=== PATIENT | male | born 1955 | race Caucasian/White ===

== ENCOUNTER → 2019-11-12 | Outpatient (CLI) | payer OTHER ==
[2019-11-12 15:27] LABS: Anisocytosis Slight; HCT 32.2 % (39.0-53.0); HGB 9.6 gm/dL (13.0-17.5); Hypochromasia Marked; MCH 24.8 pg (25.0-35.0); MCHC 29.8 g/dL (31.0-37.0); MCV 83.2 fL (80.0-100.0); Mean Platelet Volume 8.2; Platelet Count 295 k/uL (150-450); Poikilocytosis Marked; RBC 3.87 m/uL (4.30-5.90); RDW 16.8 % (11.5-15.5); WBC 3.9 k/uL (3.8-10.6)
[2019-11-12 15:35] LABS: ALT 17 U/L (4-49); AST 33 U/L (17-59); African American GFR (CKD) >90 (>60 ml/min/1.73 sqM); Albumin 4.6 g/dL (3.5-5.0); Alkaline Phosphatase 85 U/L (38-126); Anion Gap 9 mmol/L; Blood Urea Nitrogen 17 mg/dL (9-20); Calcium 9.4 mg/dL (8.4-10.2); Carbon Dioxide 25 mmol/L (22-30); Chloride 104 mmol/L (98-107); Glucose 101 mg/dL (74-99); Non-African American GFR(CKD) >90 (>60 ml/min/1.73 sqM); Potassium 4.3 mmol/L (3.5-5.1); Sodium 138 mmol/L (137-145); Total Bilirubin 0.7 mg/dL (0.2-1.3); Total Protein 7.5 g/dL (6.3-8.2)
[2019-11-12 15:39] LABS: Partial Thromboplastin Time 22.1 sec (22.0-30.0); Prothrombin Time 10.1 sec (9.0-12.0)
[2019-11-12 16:04] LABS: Appearance,Urine Clear (Clear); Bilirubin,Urine Negative (Negative); Blood,Urine Negative (Negative); Color,Urine Yellow; Glucose,Urine (UA) Negative (Negative); Hyaline Casts,Urine 1 /lpf (0-2); Ketones,Urine Negative (Negative); Leukocyte Esterase,Urine Moderate (Negative); Mucus,Urine Few /hpf; Nitrite,Urine Negative (Negative); PH, Urine 6.5 (5.0-8.0); Protein,Urine 1+ (Negative); RBC,Urine 1 /hpf (0-5); Specific Gravity,Urine 1.015 (1.001-1.035); Squamous Epithelial Cell,Urine 1 /hpf (0-4); Urobilinogen,Urine <2.0 mg/dL (<2.0); WBC,Urine 13 /hpf (0-5)
== END | disposition home or self-care (01) ==
LOC: LABPAT 14:56
PROVIDERS: ATTEND Orthopaedic Surgery
DX: Z01.818 Encounter for other preprocedural examination (principal); Z01.812 Encounter for preprocedural laboratory examination
CPT/HCPCS: 36415; 80053; 81001; 85027; 85610; 85730; 87070

== ENCOUNTER → 2019-11-18 | Outpatient (CLI) | payer OTHER ==
[2019-11-18 10:01] LABS: Anisocytosis Slight; HCT 32.4 % (39.0-53.0); HGB 9.4 gm/dL (13.0-17.5); Hypochromasia Marked; MCH 23.9 pg (25.0-35.0); MCV 82.5 fL (80.0-100.0); Mean Platelet Volume 8.2; Platelet Count 302 k/uL (150-450); Poikilocytosis Marked; RBC 3.93 m/uL (4.30-5.90); WBC 4.6 k/uL (3.8-10.6)
[2019-11-18 10:10] LABS: Prothrombin Time 9.9 sec (9.0-12.0)
[2019-11-18 10:18] LABS: ALT 19 U/L (4-49); AST 30 U/L (17-59); African American GFR (CKD) >90 (>60 ml/min/1.73 sqM); Albumin 4.1 g/dL (3.5-5.0); Alkaline Phosphatase 86 U/L (38-126); Anion Gap 8 mmol/L; Blood Urea Nitrogen 18 mg/dL (9-20); Calcium 8.9 mg/dL (8.4-10.2); Carbon Dioxide 24 mmol/L (22-30); Chloride 105 mmol/L (98-107); Glucose 145 mg/dL (74-99); Non-African American GFR(CKD) 85 (>60 ml/min/1.73 sqM); Potassium 4.7 mmol/L (3.5-5.1); Sodium 137 mmol/L (137-145); Total Bilirubin 0.5 mg/dL (0.2-1.3); Total Protein 6.7 g/dL (6.3-8.2)
== END | disposition home or self-care (01) ==
LOC: LABPAT 12:00
PROVIDERS: ATTEND Orthopaedic Surgery
DX: Z01.818 Encounter for other preprocedural examination (principal)
CPT/HCPCS: 80053; 85027; 85610; 85730; 86850; 86900; 86901

== ENCOUNTER 2019-11-20 10:13 | Day surgery (SDC) | payer OTHER ==
[2019-11-18 10:01] LABS: Anisocytosis Slight; HCT 32.4 % (39.0-53.0); HGB 9.4 gm/dL (13.0-17.5); Hypochromasia Marked; MCH 23.9 pg (25.0-35.0); MCV 82.5 fL (80.0-100.0); Mean Platelet Volume 8.2; Platelet Count 302 k/uL (150-450); Poikilocytosis Marked; RBC 3.93 m/uL (4.30-5.90); WBC 4.6 k/uL (3.8-10.6)
[2019-11-18 10:10] LABS: Prothrombin Time 9.9 sec (9.0-12.0)
[2019-11-18 10:18] LABS: ALT 19 U/L (4-49); AST 30 U/L (17-59); African American GFR (CKD) >90 (>60 ml/min/1.73 sqM); Albumin 4.1 g/dL (3.5-5.0); Alkaline Phosphatase 86 U/L (38-126); Anion Gap 8 mmol/L; Blood Urea Nitrogen 18 mg/dL (9-20); Calcium 8.9 mg/dL (8.4-10.2); Carbon Dioxide 24 mmol/L (22-30); Chloride 105 mmol/L (98-107); Glucose 145 mg/dL (74-99); Non-African American GFR(CKD) 85 (>60 ml/min/1.73 sqM); Potassium 4.7 mmol/L (3.5-5.1); Sodium 137 mmol/L (137-145); Total Bilirubin 0.5 mg/dL (0.2-1.3); Total Protein 6.7 g/dL (6.3-8.2)
[2019-11-19 10:10] VITALS: BMI 37.3
[~2019-11-20 10:13] MED LIST: ACETAMINOPHEN TAB 500 MG TAB PO ONE; GABAPENTIN 300 MG CAP PO ONE; MELOXICAM 7.5 MG TAB PO ONE; TRANEXAMIC ACID 1,000 MG in SODIUM CHLORIDE 0.9% 100 ML IVPB ONE; ceFAZolin 3 GM in SODIUM CHLORIDE 0.9% 100 ML IVPB ONE
[2019-11-20] MEDS: LACTATED RINGERS 1,000 ML IV SCH ×2 (10:42→16:36)
[2019-11-20] MEDS ORDERED: LIDOCAINE 1% (10MG/ML) FOR IV START INTRADERMA ONE (10:43)
[2019-11-20] MEDS ORDERED: ONDANSETRON 4 MG/2 ML VIAL ONE (10:44)
[2019-11-20] MEDS ORDERED: DEXAMETHASONE SOD PHOSPHATE 10 MG/ML 1 ML VIAL IV ONE (10:44)
[2019-11-20] MEDS ORDERED: ONDANSETRON 4 MG/2 ML VIAL IVP ONE (10:44)
[2019-11-20] MEDS ORDERED: DIAZEPAM 5 MG TAB PO PRN (11:11)
[2019-11-20] MEDS ORDERED: NALOXONE 0.4 MG/ML 1 ML VIAL IV PRN (11:11)
[2019-11-20] MEDS ORDERED: ONDANSETRON 4 MG/2 ML VIAL IVP PRN (11:11)
[2019-11-20] MEDS ORDERED: hydrOXYzine PAMOATE 25 MG CAP PO PRN (11:11)
[2019-11-20] MEDS ORDERED: HYDROcodone/APAP 5-325MG 1 EACH TAB PO PRN ×2 (11:11)
[2019-11-20] MEDS ORDERED: MAGNESIUM HYDROXIDE 2,400 MG/10 ML CUP PO PRN (11:11)
[2019-11-20] MEDS ORDERED: HYDROmorphone 0.5 MG/0.5 ML SYRINGE IVP PRN ×2 (11:11)
[2019-11-20] MEDS ORDERED: fentaNYL (PF) 50 MCG/ML 2 ML AMP ONE (11:16)
[2019-11-20] MEDS ORDERED: MIDAZOLAM 2 MG/2 ML VIAL ONE (11:16)
[2019-11-20] MEDS ORDERED: ePHEDrine SULFATE/0.9% NACL/PF 50 MG/5 ML SYRINGE IV ONE (11:16)
[2019-11-20] MEDS ORDERED: PHENYLEPHRINE-0.9% NACL SYG 1 MG/10 ML SYRINGE ONE (11:16)
[2019-11-20] MEDS ORDERED: TRANEXAMIC ACID 1,000 MG/10 ML VIAL ONE (11:16)
[2019-11-20] MEDS ORDERED: SODIUM CHLORIDE 0.9% IRRIG 1,000 ML BTL IRRIGATION ONE (11:16)
[2019-11-20] MEDS ORDERED: PROPOFOL 10 MG/ML 20 ML VIAL IV ONE (11:16)
[2019-11-20] MEDS ORDERED: HEPARIN SODIUM,PORCINE 10,000 UNIT/ML 1 ML VIAL ONE (11:16)
[2019-11-20] MEDS ORDERED: SODIUM CHLORIDE 0.9% 100 ML BAG ONE (11:16)
[2019-11-20] MEDS: ROPIVACAINE 246.25 MG, EPINEPHrine 0.5 MG, KETOROLAC 30 MG, cloNIDine HCL/PF 80 MCG, WA... MISCELLANE ONE ×10 (11:49→12:32)
[2019-11-20] MEDS ORDERED: ceFAZolin 3,000 MG in SODIUM CHLORIDE 0.9% IRRIGATIO 3,000 ML IRRIGATION ONE (11:50)
[2019-11-20] MEDS ORDERED: LACTATED RINGERS 1,000 ML IV ONE (12:39)
--- NOTE | 2019-11-20 12:50 | P.OP ---
Date of Procedure: 11/20/19 Preoperative Diagnosis: Severe osteoarthritis right hip Postoperative Diagnosis: Severe osteoarthritis right hip Procedure(s) Performed: Right total hip arthroplasty with a direct anterior approach Implants: Mcdonnell and nephew Polarstem size 3 standard [employer]cdonnell [employer] Nephew R3, 3 hole acetabular shell, 58 mm [employer]nell [employer]hew reflection 6.5 mm cancellus screw, 20 mm, 25 mm [employer]nell [employer]hew R3, XLPE 20 acetabular liner [employer]nell [employer] Nephew Oxinium femoral head 36 m, +8 All components were press-fit. The articulation is Oxinium on polyethylene. Anesthesia: spinal Surgeon: Kieran Fonseca Game Engineer #1: Larissa Padron Estimated Blood Loss (ml): 425 (156 mL returned with Cell Saver) Pathology: other (Femoral head) Condition: stable Disposition: PACU Indications for Procedure: After failure of conservative treatment we discussed the surgical and nonsurgical treatment options at length. Patient wishes to proceed with a total hip arthroplasty with a direct anterior approach. Complications specific to this procedure were discussed at length, including but not limited to infection, leg length discrepancy, dislocation, and nerve injury. Covid-19 was also discussed at length with the patient, and they are aware of the current policies and procedures. The patient was given the option of delaying surgery, but they elect to proceed knowing these risks. Patient is aware of all these complications and informed consent was obtained Operative Findings: The operative findings are consistent with severe osteoarthritis of the right hip Description of Procedure: Patient was seen and evaluated in the preoperative area, consent was reviewed, and the surgical site was marked with a skin marker. Patient was then brought to the operating room and given prophylactic antibiotics intravenously. 1 g of Tranexamic acid was also given. A spinal anesthetic was administered by the anesthesia department. The patient was then placed on the [place] table with the bony prominences well-padded. The hip area was then prepped and draped in usual sterile fashion. A universal timeout was then performed, which confirmed the patient's name, surgical site, ALLERGIES, and procedure being performed. Next the incision site was located at 1 cm distal and 1 cm lateral to the anterior superior iliac spine. The skin and subcutaneous tissues were sharply incised. Incision was carefully dissected down to the fascia overlying the tensor fascia uriel muscle. This fascia was then incised in line with the incision. Next, using blunt finger dissection, the tensor fascia uriel muscle was dissected off its investing fascia. The muscle was then carefully retracted laterally with a cobra retractor over the lateral neck of the femur. Next, the circumflex vessels were identified and cauterized using the AquaMantis device. The anterior hip capsule was then exposed. The capsule was then opened and an inverted T fashion. Cobra retractors were then placed intracapsularly. The proximal femur was then visualized. The femoral neck was then osteotomized appropriate level above the lesser trochanter. Small amount of traction was placed with the [place] table. A small wedge of bone was then removed from the remaining femoral head. Next, using a corkscrew femoral head was easily removed from the acetabulum. On gross visual inspection, the femoral head had complete loss of articular cartilage in multiple periarticular osteophytes. Attention was then turned to the acetabulum. the acetabulum was exposed and any remaining labrum was excised. Sequential reaming of the acetabulum was performed using fluoroscopic guidance. When the appropriate size was reached, a trial was then placed. The position and fit of the trial was checked with fluoroscopy. The trial was then removed. A superior acetabular cyst was encountered and curetted was then bone grafted with autologous bone obtained from the reamings. Then, using fluoroscopic guidance, the final implant was impacted at 20 of anteversion and 40 of abduction, and fully seated in the acetabulum. 2 screws were then placed in the acetabulum. Again fluoroscopy was used to check position of the screws. Next, the liner was then impacted, with a 20 elevated liner located in the anterior superior quadrant. Component locking was confirmed. Attention was then directed to the femur. With the aid of the Midland table, the femur was externally rotated to approximately 130, extended, and abducted under the opposite leg. A side hook was then placed under the proximal femur, and the side hook elevator was used to elevate the proximal femur. Retractors were then placed. A capsular release was performed, as well as a release of the conjoined tendon, which afforded excellent visualization of the proximal femur. Next, a box osteotome was used to lateralize the proximal femur. A canvas cutter hand was then used to locate the femoral canal. Sequential broaching was then performed with appropriate size which afforded excellent fixation in the proximal femur. A trial was then placed with appropriate head and neck, and the hip was gently reduced with the aid of the [place]land table. Fluoroscopy was then used to check position of the components, as well as to ensure equal leg lengths. The hip was then gently dislocated and the trials were then removed. Final implants were then impacted and the hip was again reduced. Final fluoroscopic x-rays confirmed that the components were in anatomic position, as well as equal leg lengths. The hip was also taken through range of motion, and found to be stable. The hip was then copiously irrigated with antibiotic solution with pulsatile lavage. The hip was then irrigated with Irrisept solution. The soft tissues were then injected with a ropivacaine solution, which consisted of 246.25 mg of ropivacaine, 0.5 mg of epinephrine, 30 mg of Toradol, 80 g of clonidine, and 48.45 mL of sterile water, for a total of 100 mL of fluid injected. A second dose of 1 g of Tranexamic acid was also given. the fascia was then closed with 2-0 strata fix suture. The subcutaneous tissue was closed with 3-0 Vicryl. The subcuticular tissue was closed with 3-0 strata fix suture. The skin was then closed with Dermabond glue and a sterile silver dressing. The patient was then transferred to the recovery room in stable condition. The assistant teaching professor REBECCA Baugh was required due to the complexity of surgery, and the need for skilled spa assistant manager for positioning, draping, exposure, retraction, and closure of the wound.
--- NOTE | 2019-11-20 13:34 | XR ---
Fluoroscopy History: Rt Hip-Ant [address] Fonseca
[2019-11-20] MEDS ORDERED: HYDROmorphone 0.5 MG/0.5 ML SYRINGE IVP ONE (15:05)
[2019-11-20] MEDS ORDERED: SODIUM CHLORIDE 0.9% 1,000 ML IV ONE (16:32)
[2019-11-20] MEDS: SODIUM CHLORIDE 0.9% 1,000 ML IV SCH ×2 (16:36→22:12)
[2019-11-20] MEDS ORDERED: HYDROcodone/APAP 7.5-325MG 1 EACH TAB PO PRN (17:25)
--- NOTE | 2019-11-20 17:32 | P.CONS ---
History of Present Illness - Reason for Consult Consult date: 11/20/19 - Chief Complaint Medical management - History of Present Illness 64-year-old male with history of coronary artery disease status post stenting, severe osteoarthritis in the hip, hypertension, GERD, hyperlipidemia presented to the hospital for hip surgery. He just had total right hip arthroplasty. He currently has moderate amount of pain in the right hip. Otherwise he's feeling fine. No shortness of breath or chest pain. No fevers or chills. No nausea or vomiting. He stated that a few weeks ago he was using too many Celebrex and because of that he developed GI bleeding, had to 1 units of blood transfusion at . After he was discharged and was resumed on dual antiplatelet therapy. Most recently he has not had any issues with bleeding. Review of Systems Complete review of system performed, pertinent positives per HPI, otherwise negative. Past Medical History Past Medical History: Coronary Artery Disease (CAD), GERD/Reflux, Hypertension, Osteoarthritis (OA), Sleep Apnea/CPAP/BIPAP Additional Past Medical History / Comment(s): SLEEP APNEA-NO C-PAP, HX PANCREATIS, KIDNEY STONE, STATES HE WAS ON CELEBREX AND HAD GI BLEED 6 WEEKS AGO AND RECEIVED BLOOD TRANSFUSION. History of Any Multi-Drug Resistant Organisms: None Reported Past Surgical History: Adenoidectomy, Heart Catheterization With Stent, Prostate Surgery, Tonsillectomy Past Anesthesia/Blood Transfusion Reactions: No Reported Reaction, Motion Sickness Date of Last Stent Placement:: 2009 Past Psychological History: No Psychological Hx Reported Smoking Status: Never smoker Past Alcohol Use History: Occasional Past Drug Use History: None Reported - Past Family History Mother Family Medical History: No Reported History Medications and Allergies Home Medications Medication Instructions Recorded Confirmed Type Aspirin [Adult Low Dose Aspirin EC] 81 mg PO DAILY 11/19/19 11/19/19 History Carvedilol [Coreg] 12.5 mg PO DAILY 11/19/19 11/19/19 History Clopidogrel [Plavix] 75 mg PO DAILY 11/19/19 11/19/19 History HYDROcodone/APAP 7.5-325MG [[place] 1 tab PO DIRECTED PRN 11/19/19 11/20/19 His tory 7.5-325] Isosorbide Mononitrate [Isosorbide 30 mg PO DAILY 11/19/19 11/20/19 History Mononitrate ER] Multivitamins, Thera [Multivitamin 1 tab PO DAILY 11/19/19 11/19/19 History (formulary)] Niacin (Inositol Niacinate) 2,000 mg PO BID 11/19/19 11/19/19 History [Niacin 500 mg Capsule] Turmeric (Unknown Dose) 1 tab PO DAILY 11/19/19 11/20/19 History Vitamin C (Unknown Dose) 1 tab PO DAILY 11/19/19 11/20/19 History Vitamin E (Unknown Dose) 1 cap PO DAILY 11/19/19 11/20/19 History Allergies Allergy/AdvReac Type Severity Reaction Status Date / Time adhesive Allergy Unknown red , Verified 11/20/19 16:49 irritated skin with bandaids/tape Iodinated Contrast Media Allergy Unknown Dyspnea, Verified 11/20/19 16:49 Flushed Physical Exam Vitals: Vital Signs Temp Pulse Pulse Resp BP BP Pulse Ox 11/20/19 16:48 98.2 F 78 17 152/81 94 L 11/20/19 16:00 78 16 148/80 98 11/20/19 14:57 72 16 121/69 97 11/20/19 14:30 58 L 18 123/76 97 11/20/19 14:00 71 16 125/73 98 11/20/19 13:30 67 16 106/69 99 11/20/19 13:15 66 16 116/67 97 11/20/19 13:00 96.8 F L 73 14 109/60 94 L 11/20/19 10:36 97.7 F 72 16 138/67 98 Intake and Output 11/20/19 11/20/19 11/20/19 06:59 14:59 22:59 Intake Total 1201 825 Output Total 425 Balance 776 825 Intake: IV 1201 825 Output: Estimated Blood Loss 425 Other: Weight 119.6 kg 119.6 kg Constitutional: No acute distress, conversant, pleasant Eyes:Anicteric sclerae, moist conjunctiva, no lid-lag, PERRLA, ENMT: Oropharynx clear, no erythema, exudates Neck: Supple, FROM, no masses, or JVD, No carotid bruits, No thyromegaly Lungs: Clear to auscultation, Clear to percussion, Normal respiratory effort, no accessory muscle use Cardiovascular: Heart regular in rate and rhythm, No murmurs, gallops, or rubs, No peripheral edema Abdominal: Soft, Nontender, no guarding, rebound or rigidity, Normoactive bowel sounds, No hepatomegaly, No splenomegaly, No palpable mass Skin: Normal temperature, tone, texture, turgor, no induration, No subcutaneous nodules, No rash, lesions, No ulcers Extremities: No digital cyanosis, No clubbing, Pedal pulses intact and symmetrical, Radial pulses intact and symmetrical, No calf tenderness Psychiatric: Alert and oriented to person, place and time, appropriate affect, intact judgement Neuro: Muscles Strength 5/5 in all 4 extremities, Sensation to light touch grossly present throughout, Cranial nerves II-XII grossly intact, no focal sensory deficits Results CBC & Chem 7: 11/18/19 09:30 11/18/19 09:30 Assessment and Plan Plan: Severe right hip osteoarthritis status post total arthroplasty Management per surgery Pain control Coronary artery disease status post stenting Continue dual antiplatelet therapy once safe per surgery team Currently stable, no chest pain Continue to monitor Hyperglycemia Random glucose check was 145, Check HbA1c and fasting glucose Hypertension Hyperlipidemia All stable Resume meds
[2019-11-20] MEDS: NIACIN 2000 MG PO SCH (20:07)
[2019-11-20] MEDS ORDERED: SENNOSIDES-DOCUSATE SODIUM 1 EACH TAB PO SCH (21:00)
[2019-11-20] MEDS: HYDROmorphone 1 MG/ML 1 ML SYRINGE IVP PRN (22:12)
[2019-11-21] MEDS: HYDROmorphone 1 MG/ML 1 ML SYRINGE IVP PRN ×2 (02:14→05:08)
[2019-11-21] MEDS: NIACIN 2000 MG PO SCH (07:28)
[2019-11-21] MEDS ORDERED: CARVEDILOL 12.5 MG TAB PO SCH (07:30)
[2019-11-21 08:15] VITALS: BP 127/73; PULSE 69; RESP 18; TEMP 97.9
[2019-11-21 08:17] LABS: Anisocytosis Slight; Basophils % (A) 0 %; Eosinophils % (A) 0 %; HCT 28.9 % (39.0-53.0); HGB 8.3 gm/dL (13.0-17.5); Hypochromasia Marked; Lymphocytes # (A) 1.2 k/uL (1.0-4.8); Lymphocytes % (A) 12 %; MCH 23.6 pg (25.0-35.0); MCHC 28.6 g/dL (31.0-37.0); MCV 82.5 fL (80.0-100.0); Mean Platelet Volume 8.2; Monocytes # (A) 0.7 k/uL (0-1.0); Monocytes % (A) 7 %; Neutrophils # (A) 7.9 k/uL (1.3-7.7); Neutrophils % (A) 80 %; Platelet Count 277 k/uL (150-450); Poikilocytosis Marked; RBC 3.51 m/uL (4.30-5.90); RDW 17.9 % (11.5-15.5); WBC 9.9 k/uL (3.8-10.6)
[2019-11-21 08:28] LABS: African American GFR (CKD) >90 (>60 ml/min/1.73 sqM); Anion Gap 7 mmol/L; Blood Urea Nitrogen 17 mg/dL (9-20); Calcium 8.6 mg/dL (8.4-10.2); Carbon Dioxide 26 mmol/L (22-30); Chloride 105 mmol/L (98-107); Glucose 103 mg/dL (74-99); Non-African American GFR(CKD) >90 (>60 ml/min/1.73 sqM); Potassium 4.9 mmol/L (3.5-5.1); Sodium 138 mmol/L (137-145)
[2019-11-21] MEDS ORDERED: CLOPIDOGREL 75 MG TAB PO SCH (09:00)
[2019-11-21] MEDS ORDERED: NON FORMULARY DRUG (Aspirin [Adult Low Dose Aspirin Ec] 81 MG) PO SCH (09:00)
[2019-11-21] MEDS ORDERED: MULTIVITAMINS, THERA 1 EACH TAB PO SCH (09:00)
[2019-11-21] MEDS ORDERED: ISOSORBIDE MONONITRATE ER 30 MG TAB.ER.24H PO SCH (09:00)
[2019-11-21] MEDS ORDERED: ASPIRIN 81 MG PO SCH (09:00)
[2019-11-21] MEDS ORDERED: HYDROcodone/APAP 7.5-325MG 1 EACH TAB PO PRN ×2 (09:23)
--- NOTE | 2019-11-21 09:32 | P.DS ---
Providers Expected date of discharge: 11/21/19 Attending physician: Kieran Fonseca Consults: 11/20/19 11:11 Consult Physician Routine Consulting Provider: Marin Emanuel Consult Reason/Comments: medical management Do you want consulting provider notified?: Yes Primary care physician: Physician Nonstaff - Discharge Diagnosis(es) (1) Osteoarthritis of right hip Current Visit: Yes Status: Acute (2) Status post total hip replacement, right Current Visit: Yes Status: Acute Hospital Course: This is a 64-year-old male with known history of degenerative arthritis of the right hip. The patient presents for evaluation. After discussion and consideration patient elects to proceed with total hip arthroplasty. The patient is seen preoperatively by Dr. Fonseca and medically cleared for surgery by their primary care physician. Patient is admitted to [facility] on 11/20/2019 for total hip arthroplasty. The procedures performed without complication or sequelae. The patient is doing well postoperatively. Labs and vital signs are stable on day of discharge. On day of discharge patient's hip incision is healing well. There is minimal erythema. There is no drainage noted at this time. There is minimal soft tissue swelling to the hip and thigh. Patient has full foot and ankle motion without difficulty or pain. Calf is soft and nontender to palpation. Neurovascular status to the right lower extremity is intact. Patient is discharged home in good condition. Opioid start talking form is reviewed and signed at patient bedside. Please see med rec for accurate list of home medications. Plan - Discharge Summary Discharge Rx Participant: Yes New Discharge Prescriptions: No Action Multivitamins, Thera [Multivitamin (formulary)] 1 tab PO DAILY Isosorbide Mononitrate [Isosorbide Mononitrate ER] 30 mg PO DAILY Clopidogrel [Plavix] 75 mg PO DAILY Carvedilol [Coreg] 12.5 mg PO DAILY HYDROcodone/APAP 7.5-325MG [[place] 7.5-325] 1 tab PO DIRECTED PRN PRN Reason: Pain Vitamin E (Unknown Dose) 1 cap PO DAILY Vitamin C (Unknown Dose) 1 tab PO DAILY Turmeric (Unknown Dose) 1 tab PO DAILY Niacin (Inositol Niacinate) [Niacin 500 mg Capsule] 2,000 mg PO BID Aspirin [Adult Low Dose Aspirin EC] 81 mg PO DAILY Discharge Medication List Aspirin [Adult Low Dose Aspirin EC] 81 mg PO DAILY 11/19/19 [History] Carvedilol [Coreg] 12.5 mg PO DAILY 11/19/19 [History] Clopidogrel [Plavix] 75 mg PO DAILY 11/19/19 [History] HYDROcodone/APAP 7.5-325MG [[place] 7.5-325] 1 tab PO DIRECTED PRN 11/19/19 [History] Isosorbide Mononitrate [Isosorbide Mononitrate ER] 30 mg PO DAILY 11/19/19 [History] Multivitamins, Thera [Multivitamin (formulary)] 1 tab PO DAILY 11/19/19 [History] Niacin (Inositol Niacinate) [Niacin 500 mg Capsule] 2,000 mg PO BID 11/19/19 [History] Turmeric (Unknown Dose) 1 tab PO DAILY 11/19/19 [History] Vitamin C (Unknown Dose) 1 tab PO DAILY 11/19/19 [History] Vitamin E (Unknown Dose) 1 cap PO DAILY 11/19/19 [History]
[2019-11-21] MEDS: LACTATED RINGERS 1,000 ML IV SCH (12:08)
--- NOTE | 2019-11-21 12:44 | XR ---
EXAMINATION TYPE: XR Hip Limited RT DATE OF EXAM: 11/21/2019 CLINICAL HISTORY: Right hip pain and osteoarthritis. TECHNIQUE: Single AP portable view of right hip is obtained immediately postoperatively. COMPARISON: None. FINDINGS: Metallic hardware from right hip arthroplasty is seen and appears satisfactory in alignment and position. There is evidence of recent surgery with subcutaneous gas noted laterally. IMPRESSION: Metallic hardware from right hip arthroplasty is satisfactory in position.
[2019-11-21 20:06] LABS: Hemoglobin A1C 5.7 % (4.0-6.0)
== END 2019-11-21 13:16 | disposition home health service (06) ==
LOC: OR 10:13 → 4SSUR 13:00 → OR 11-21 13:16
PROVIDERS: ATTEND Orthopaedic Surgery
DX: M16.11 Unilateral primary osteoarthritis, right hip (principal); I25.10 Atherosclerotic heart disease of native coronary artery without angina pectoris; I11.9 Hypertensive heart disease without heart failure; K21.9 Gastro-esophageal reflux disease without esophagitis; E78.5 Hyperlipidemia, unspecified; H91.90 Unspecified hearing loss, unspecified ear; G47.33 Obstructive sleep apnea (adult) (pediatric); Z87.442 Personal history of urinary calculi; Z95.5 Presence of coronary angioplasty implant and graft; Z90.89 Acquired absence of other organs; Z79.82 Long term (current) use of aspirin; Z79.02 Long term (current) use of antithrombotics/antiplatelets; Z79.899 Other long term (current) drug therapy; Z91.048 Other nonmedicinal substance allergy status; Z91.041 Radiographic dye allergy status; Z98.890 Other specified postprocedural states; Z97.3 Presence of spectacles and contact lenses; Z87.11 Personal history of peptic ulcer disease; Z82.49 Family history of ischemic heart disease and other diseases of the circulatory system; Z88.8 Allergy status to other drugs, medicaments and biological substances
CPT/HCPCS: 97110; 97161; 97165; 86891; 86900; 86901; 80053; 80048; 85025; 85027; 85610; 85730; 86850; 88300; 83036; 73501 ×2; 27130; P9022; C1776; J0171; J1100; J0690 ×3; J2405; J1885; J1170 ×3; J2795; J0735

== ENCOUNTER → 2022-01-01 | Outpatient (CLI) | payer MEDICARE ==
--- NOTE | 2022-01-01 16:33 | XR ---
EXAMINATION TYPE: XR tibia fibula RT DATE OF EXAM: 01/01/2022 4:16 PM INDICATION: Patient age:Male; 66 years old; Reason for study: M79.604; [facility] COMPARISON: None TECHNIQUE: The right tibia/fibula was examined in AP and lateral projections. FINDINGS: No evidence of any acute osseous pathology, joint dislocation. There is soft tissue edema o zach the anterior tibia and fibula without evidence of fracture. IMPRESSION: 1. No evidence of acute fracture. 2. Soft tissue tissue edema in the anterior lower leg.
--- NOTE | 2022-01-01 23:15 | US ---
EXAMINATION TYPE: US venous doppler duplex LE RT DATE OF EXAM: 01/01/2022 4:02 PM COMPARISON: NONE CLINICAL HISTORY: M79.604. SIDE PERFORMED: Right TECHNIQUE: The lower extremity deep venous system is examined utilizing real time linear array sonog analy with graded compression, doppler sonography and color-flow sonography. VESSELS IMAGED: Common Femoral Vein Deep Femoral Vein Greater Saphenous Vein * Femoral Vein Popliteal Vein Small Saphenous Vein * Proximal Calf Veins (* superficial vessels) Right Leg: Negative for DVT Grayscale, color doppler, spectral doppler imaging performed of the deep veins of the lower extremiti es. There is normal flow, compressibility, vascular waveforms. IMPRESSION: No evidence of deep vein thrombosis of the right lower extremity.
== END | disposition home or self-care (01) ==
LOC: RADUSWWP 15:32
PROVIDERS: ATTEND Family Medicine
DX: M79.604 Pain in right leg (principal); R60.0 Localized edema

== ENCOUNTER 2022-07-27 11:48 | Observation (INO) | payer MEDICARE ==
[2022-07-27] MEDS ORDERED: SODIUM CHLORIDE 0.9% 1,000 ML IV STA ×2 (12:32→13:16)
--- NOTE | 2022-07-27 12:36 | ED ---
Dizziness HPI - General Chief Complaint: Dizziness Stated Complaint: Syncope, low BP Time Seen by Provider: 07/27/22 12:10 Source: patient, EMS, RN notes reviewed Mode of arrival: EMS Limitations: no limitations - History of Present Illness Initial Comments: 67-year-old male history of heart disease who is on aspirin and Plavix who states he felt lightheaded this morning dizzy like he was going to pass out he also had a black colored bowel movement. He states he has had that in the past no abdominal pain no fevers chills or sweats he did feel somewhat nauseated with an upset stomach this morning. EMS was called he was found have a systolic blood pressure in 80s initially. She had thought that perhaps his blood pressure was biking in the high zone but it was not. He denies any focal weakness any headache blurry vision or other symptoms at this time. MD Complaint: dizziness, lightheadedness, near syncope, other - Related Data Home Medications Medication Instructions Recorded Confirmed Clopidogrel [Plavix] 75 mg PO DAILY 11/19/19 07/27/22 Isosorbide Mononitrate [Isosorbide 60 mg PO DAILY 11/19/19 07/27/22 Mononitrate ER] carvediloL [Coreg] 12.5 mg PO BID 11/19/19 07/27/22 Aspirin [Adult Low Dose Aspirin EC] 81 mg PO DAILY 07/27/22 07/27/22 Famotidine 40 mg PO DAILY PRN 07/27/22 07/27/22 Niacin [Niaspan] 1,000 mg PO HS 07/27/22 07/27/22 Niacin [Niaspan] 2,000 mg PO DAILY 07/27/22 07/27/22 Allergies Allergy/AdvReac Type Severity Reaction Status Date / Time adhesive Allergy Unknown red , Verified 07/27/22 12:08 irritated skin with bandaids/tape Iodinated Contrast Media Allergy Unknown Dyspnea, Verified 07/27/22 12:08 Flushed Latex, Natural Rubber Allergy Rash/Hives Verified 07/27/22 12:08 Review of Systems ROS Statement: Those systems with pertinent positive or pertinent negative responses have been documented in the HPI. ROS Other: All systems not noted in ROS Statement are negative. Past Medical History Past Medical History: Hyperlipidemia, Hypertension History of Any Multi-Drug Resistant Organisms: None Reported Past Surgical History: Heart Catheterization With Stent, Joint Replacement, Orthopedic Surgery Additional Past Surgical History / Comment(s): TURP Past Psychological History: No Psychological Hx Reported Smoking Status: Never smoker Past Alcohol Use History: Rare Past Drug Use History: None Reported General Exam - General Exam Comments Initial Comments: This is a well-developed well-nourished awake alert oriented 4 male Limitations: no limitations General appearance: alert, in no apparent distress Head exam: Present: atraumatic, normocephalic, normal inspection Eye exam: Present: normal appearance, PERRL, EOMI. Absent: scleral icterus, conjunctival injection, periorbital swelling ENT exam: Present: normal exam, mucous membranes moist Neck exam: Present: normal inspection, full ROM, other (No stridor JVD or bruits). Absent: tenderness, meningismus, lymphadenopathy Respiratory exam: Present: normal lung sounds bilaterally. Absent: respiratory distress, wheezes, rales, rhonchi, stridor Cardiovascular Exam: Present: regular rate, normal rhythm, normal heart sounds. Absent: systolic murmur, diastolic murmur, rubs, gallop, clicks GI/Abdominal exam: Present: soft, normal bowel sounds. Absent: distended, tenderness, guarding, rebound, rigid Rectal exam: Present: normal inspection, black stool exam: Present: normal inspection Extremities exam: Present: full ROM, normal capillary refill, other (No evidence of stasis dermatitis). Absent: tenderness, pedal edema, joint swelling, calf tenderness Back exam: Present: normal inspection Neurological exam: Present: alert, oriented X3, CN II-XII intact Psychiatric exam: Present: normal affect, normal mood Skin exam: Present: warm, dry, intact, normal color. Absent: rash Course Vital Signs 07/27/22 07/27/22 07/27/22 11:49 12:46 13:07 Temperature 97.8 F Pulse Rate 87 81 76 Respiratory 18 20 20 Rate Blood Pressure 125/83 115/75 83/51 Blood Pressure [Left Arm Sitting] Blood Pressure [Left Arm Standing] Blood Pressure [Left Arm Supine] O2 Sat by Pulse 97 98 100 Oximetry 07/27/22 07/27/22 14:15 15:05 Temperature Pulse Rate 86 Respiratory 18 Rate Blood Pressure 107/76 Blood Pressure 95/74 [Left Arm Sitting] Blood Pressure 80/67 [Left Arm Standing] Blood Pressure 121/71 [Left Arm Supine] O2 Sat by Pulse 97 Oximetry - Reevaluation(s) Reevaluation #1: 07/27/22 15:29 Did have an episode of lightheadedness and dizziness with walking in the bathroom and back he did have hypotensive episode. Due to the episode he was ordered a unit of packed red blood cells. Reevaluation #2: 07/27/22 15:29 Was seen in emergency department by Dr. Pearson EKG Findings - EKG Results: EKG: interpreted by LUDIVINA, sinus rhythm (EKG interpreted by me sinus rhythm of 84. Interval 156 QRS duration 94 QT since QTC 348/389 borderline EKG nonspecific T-wave configuration) Medical Decision Making - Medical Decision Making I did evaluate patient multiple occasions he did have an apparent near-syncopal episode while in emergency department he did demonstrate evidence of hypotension. Heme positive stool that was black. Hemoglobin and the tens he normally states he thrown 14. Patient will be admitted for evaluation of GI bleed symptomatic anemia near-syncopal episode.Was pt. sent in by a medical professional or institution (, PA, CAN PILER, urgent care, hospital, or shelter...) When possible be specific @ -[No] Did you speak to anyone other than the patient for history (EMS, parent, family, police, friend...)? What history was obtained from this source @ -[No] Did you review nursing and triage notes (agree or disagree)? Why? @ -[I reviewed and agree with nursing and triage notes] Were old charts reviewed (outside hosp., previous admission, EMS record, old EKG, old radiological studies, urgent care reports/EKG's, shelter records)? Report findings @ -[No old charts were reviewed] Differential Diagnosis (chest pain, altered mental status, abdominal pain women, abdominal pain men, vaginal bleeding, weakness, fever, dyspnea, syncope, headache, dizziness, GI bleed, back pain, seizure, CVA, palpatations, mental health, musculoskeletal)? @ -[Dizziness, GI bleed] EKG interpreted by me (3pts min.). @ -[As above] X-rays interpreted by me (1pt min.). @ -[Above] CT interpreted by me (1pt min.). @ -[None done] U/S interpreted by me (1pt. min.). @ -[None done] What testing was considered but not performed or refused? (CT, X-rays, U/S, labs)? Why? @ -[None] What meds were considered but not given or refused? Why? @ -[None] Did you discuss the management of the patient with other professionals (professionals i.e. , PA, CAN PILER, lab, RT, psych nurse, social media community manager, multi spindle operator, teacher, licensed mortgage loan officer, case resource manager)? Give summary @ -[Pearson] Was smoking cessation discussed for >3mins.? @ -[No] Was critical care preformed (if so, how long)? @ -[1 minutes] Were there social determinants of health that impacted care today? How? (Homeles sness, low income, unemployed, alcoholism, drug addiction, transportation, low edu. Level, literacy, decrease access to med. care, senior living, rehab)? @ -[No] Was there de-escalation of care discussed even if they declined (Discuss DNR or withdrawal of care, Hospice)? DNR status @ -[No] What co-morbidities impacted this encounter? (DM, HTN, Smoking, COPD, CAD, Cancer, CVA, ARF, Chemo, Hep., AIDS, mental health diagnosis, sleep apnea, morbid obesity)? @ -[CAD. previous GI bleed] Was patient admitted / discharged? Hospital course, mention meds given and route, prescriptions, significant lab abnormalities, going to OR and other pertinent info. @ -[hospital course] admitted Undiagnosed new problem with uncertain prognosis? @ -[No] Drug Therapy requiring intensive monitoring for toxicity (Heparin, Nitro, Insul in, Cardizem)? @ -[Blood transfusion] Were any procedures done? @ -[No] Diagnosis/symptom? @ -[Lightheadedness, GI bleed, hypotensive episode, symptomatic anemia] Acute, or Chronic, or Acute on Chronic? @ -[Acute] Uncomplicated (without systemic symptoms) or Complicated (systemic symptoms)? @ -[Complicated due to hypotension] Side effects of treatment? @ -[No] Exacerbation, Progression, or Severe Exacerbation? @ -[No] Poses a threat to life or bodily function? How? (Chest pain, USA, NH, pneumonia, PE, COPD, DKA, ARF, appy, cholecystitis, CVA, Diverticulitis, Homicidal, Suicidal, threat to staff... and all critical care pts) @ -[Tensely is not treated] - Lab Data Result diagrams: 07/27/22 12:43 07/27/22 12:43 Lab Results 07/27/22 07/27/22 07/27/22 Range/Units 12:43 12:43 12:43 WBC 6.7 (3.8-10.6) k/uL RBC 3.46 L (4.30-5.90) m/uL Hgb 10.6 L (13.0-17.5) gm/dL Hct 32.3 L (39.0-53.0) % MCV 93.4 (80.0-100.0) fL MCH 30.5 (25.0-35.0) pg MCHC 32.7 (31.0-37.0) g/dL RDW 13.7 (11.5-15.5) % Plt Count 219 (150-450) k/uL MPV 7.8 Neutrophils % 73 % Lymphocytes % 17 % Monocytes % 5 % Eosinophils % 3 % Basophils % 1 % Neutrophils # 4.9 (1.3-7.7) k/uL Lymphocytes # 1.2 (1.0-4.8) k/uL Monocytes # 0.3 (0-1.0) k/uL Eosinophils # 0.2 (0-0.7) k/uL Basophils # 0.0 (0-0.2) k/uL Poikilocytosis Slight PT 10.6 (9.0-12.0) sec INR 1.0 (<1.2) Sodium 138 (137-145) mmol/L Potassium 4.7 (3.5-5.1) mmol/L Chloride 107 (98-107) mmol/L Carbon Dioxide 24 (22-30) mmol/L Anion Gap 7 mmol/L BUN 38 H (9-20) mg/dL Creatinine 1.03 (0.66-1.25) mg/dL Est GFR (CKD-EPI)AfAm 88 (>60 ml/min/1.73 sqM) Est GFR (CKD-EPI)NonAf 76 (>60 ml/min/1.73 sqM) Glucose 107 H (74-99) mg/dL Calcium 8.2 L (8.4-10.2) mg/dL Magnesium 1.9 (1.6-2.3) mg/dL Total Bilirubin 0.7 (0.2-1.3) mg/dL AST 26 (17-59) U/L ALT 19 (4-49) U/L Alkaline Phosphatase 42 (38-126) U/L Creatine Kinase 60 (55-170) U/L Troponin I (0.000-0.034) ng/mL Total Protein 5.2 L (6.3-8.2) g/dL Albumin 3.1 L (3.5-5.0) g/dL Stool Occult Blood (Negative) Blood Type Recheck Bld Type Recheck Status Spec Expiration Date 07/27/22 07/27/22 07/27/22 Range/Units 12:43 12:43 12:43 WBC (3.8-10.6) k/uL RBC (4.30-5.90) m/uL Hgb (13.0-17.5) gm/dL Hct (39.0-53.0) % MCV (80.0-100.0) fL MCH (25.0-35.0) pg MCHC (31.0-37.0) g/dL RDW (11.5-15.5) % Plt Count (150-450) k/uL MPV Neutrophils % % Lymphocytes % % Monocytes % % Eosinophils % % Basophils % % Neutrophils # (1.3-7.7) k/uL Lymphocytes # (1.0-4.8) k/uL Monocytes # (0-1.0) k/uL Eosinophils # (0-0.7) k/uL Basophils # (0-0.2) k/uL Poikilocytosis PT (9.0-12.0) sec INR (<1.2) Sodium (137-145) mmol/L Potassium (3.5-5.1) mmol/L Chloride (98-107) mmol/L Carbon Dioxide (22-30) mmol/L Anion Gap mmol/L BUN (9-20) mg/dL Creatinine (0.66-1.25) mg/dL Est GFR (CKD-EPI)AfAm (>60 ml/min/1.73 sqM) Est GFR (CKD-EPI)NonAf (>60 ml/min/1.73 sqM) Glucose (74-99) mg/dL Calcium (8.4-10.2) mg/dL Magnesium (1.6-2.3) mg/dL Total Bilirubin (0.2-1.3) mg/dL AST (17-59) U/L ALT (4-49) U/L Alkaline Phosphatase (38-126) U/L Creatine Kinase (55-170) U/L Troponin I 0.015 (0.000-0.034) ng/mL Total Protein (6.3-8.2) g/dL Albumin (3.5-5.0) g/dL Stool Occult Blood Positive (Negative) Blood Type Recheck O Pos Bld Type Recheck Status No Spec Expiration Date 07/30/20222342 Critical Care Time Critical Care Time: Yes Total Critical Care Time: 31 Disposition Clinical Impression: GI bleed, Symptomatic anemia, Near syncope, Hypotensive episode Disposition: ADMITTED IP TO THIS [facility] Condition: Fair Referrals: Nonstaff,Physician [Primary Care Provider] - 1-2 days Decision Date: 07/27/22 Decision Time: 15:00
[2022-07-27 12:55] LABS: Basophils % (A) 1 %; Eosinophils # (A) 0.2 k/uL (0-0.7); Eosinophils % (A) 3 %; HCT 32.3 % (39.0-53.0); HGB 10.6 gm/dL (13.0-17.5); Lymphocytes # (A) 1.2 k/uL (1.0-4.8); Lymphocytes % (A) 17 %; MCH 30.5 pg (25.0-35.0); MCHC 32.7 g/dL (31.0-37.0); MCV 93.4 fL (80.0-100.0); Mean Platelet Volume 7.8; Monocytes # (A) 0.3 k/uL (0-1.0); Monocytes % (A) 5 %; Neutrophils # (A) 4.9 k/uL (1.3-7.7); Neutrophils % (A) 73 %; Platelet Count 219 k/uL (150-450); Poikilocytosis Slight; RBC 3.46 m/uL (4.30-5.90); RDW 13.7 % (11.5-15.5); WBC 6.7 k/uL (3.8-10.6)
[2022-07-27] MEDS ORDERED: FAMOTIDINE 20 MG/2 ML VIAL IV STA (13:01)
[2022-07-27 13:09] LABS: Prothrombin Time 10.6 sec (9.0-12.0)
--- NOTE | 2022-07-27 13:09 | XR ---
EXAMINATION TYPE: XR KUB DATE OF EXAM: 07/27/2022 Comparison: None Clinical History: 67-year-old male GI bleed Findings: Lung bases are clear. Supine imaging limited for assessment of free air. No dilated small bowel. Mini mal air scattered within the colon. No significant stool burden. Pelvic phleboliths. Partially visual ized right total hip arthroplasty. Impression: Nonspecific, nonobstructive bowel gas pattern. No significant stool burden.
[2022-07-27 13:15] LABS: Albumin 3.1 g/dL (3.5-5.0); Calcium 8.2 mg/dL (8.4-10.2); Magnesium 1.9 mg/dL (1.6-2.3); Potassium 4.7 mmol/L (3.5-5.1); Total Bilirubin 0.7 mg/dL (0.2-1.3); Total Protein 5.2 g/dL (6.3-8.2)
[2022-07-27] MEDS ORDERED: ONDANSETRON 4 MG/2 ML VIAL IVP PRN (15:37)
[2022-07-27] MEDS ORDERED: NALOXONE 0.4 MG/ML 1 ML VIAL IV PRN (15:37)
[2022-07-27 18:21] LABS: Basophils # (A) 0.1 k/uL (0-0.2); Basophils % (A) 1 %; Eosinophils # (A) 0.1 k/uL (0-0.7); Eosinophils % (A) 1 %; HCT 34.8 % (39.0-53.0); HGB 11.2 gm/dL (13.0-17.5); Hypochromasia Slight; Lymphocytes # (A) 1.8 k/uL (1.0-4.8); Lymphocytes % (A) 21 %; MCH 30.9 pg (25.0-35.0); MCHC 32.2 g/dL (31.0-37.0); MCV 95.9 fL (80.0-100.0); Mean Platelet Volume 7.7; Monocytes # (A) 0.4 k/uL (0-1.0); Monocytes % (A) 5 %; Neutrophils # (A) 5.9 k/uL (1.3-7.7); Neutrophils % (A) 71 %; Platelet Count 219 k/uL (150-450); RBC 3.63 m/uL (4.30-5.90); RDW 13.3 % (11.5-15.5); WBC 8.4 k/uL (3.8-10.6)
[2022-07-27] MEDS: PANTOPRAZOLE 40 MG/10 ML VIAL IV SCH (20:29)
[2022-07-27] MEDS: SODIUM CHLORIDE 0.9% 1,000 ML IV SCH (20:29)
[2022-07-28 01:12] LABS: HCT 30.3 % (39.0-53.0); HGB 10.2 gm/dL (13.0-17.5); MCH 31.9 pg (25.0-35.0); MCHC 33.6 g/dL (31.0-37.0); Mean Platelet Volume 7.4; Platelet Count 191 k/uL (150-450); RBC 3.19 m/uL (4.30-5.90); RDW 13.4 % (11.5-15.5); WBC 7.4 k/uL (3.8-10.6)
--- NOTE | 2022-07-28 03:03 | HP ---
HISTORY AND PHYSICAL CHIEF COMPLAINT: Dizziness and presyncope. HISTORY OF PRESENT ILLNESS: This is a 67-year-old gentleman with past medical history of multiple medical problems including hypertension, hyperlipidemia, was being followed by foam rubber molder in [facility]. The patient was previously followed by a foam rubber molder in [place], the patient with history of CAD, stent. The patient is taking aspirin and Plavix. Today the patient had episodes of presyncope and feeling dizzy. The patient came to [facility], was noted. The hemoglobin was found to be 10.6, unit transfusion being arranged. The patient is not feeling well. There is no history of any fever, rigors, or chills. PAST MEDICAL HISTORY: Reviewed, hypertension, hyperlipidemia, CAD, stent, rest of the history and rest of the chart is also reviewed. HOME MEDICATIONS: Plavix, aspirin, dose and rest of medications noted. ALLERGIES: rest of the allergies noted. FAMILY HISTORY: No history of heart disease or strokes in the family. SOCIAL HISTORY: No history of smoking, occasional alcohol. REVIEW OF SYSTEMS: A 14-point review is negative except as mentioned earlier. PHYSICAL EXAMINATION: VITAL SIGNS: Pulse is 86, blood pressure 121/71 and standing 88/67, pulse ox 97% on 2 L. HEENT: Conjunctivae pale. NECK: No jugular venous distention. CARDIOVASCULAR: S1, S2 muffled. RESPIRATIONS: Diminished at the bases. No rhonchi, no crackles. ABDOMEN: Soft, obese. LEGS: No edema. NERVOUS SYSTEM: No focal deficits. SKIN: No ulcer, rash, bleeding. JOINTS: No active deforming arthropathy. LABORATORY DATA: Reviewed. ASSESSMENT: 1. Acute gastrointestinal bleeding with acute blood loss anemia. 2. Presyncope and orthostatic hypotension secondary to anemia. 3. Hypertension. 4. Hyperlipidemia. 5. History of coronary artery disease, stent. 6. History of TURP. RECOMMENDATIONS: This 67-year-old gentleman presented with multiple complex medical issues. At this time, I recommend at least 1 unit transfusion, type and cross 2 more units and monitor closely. H and H q.6. Also recommend gastroenterology consultation. I would also recommend cardiology consultation. Hold the antiplatelet agents at this time. We will continue the cardiac workup as well. Overall prognosis is extremely guarded because of multiple complex medical issues. I discussed with the patient, who understands. Further recommendations to follow. MMODL / IJN: [id number] / HECTOR
[2022-07-28] MEDS: SODIUM CHLORIDE 0.9% 1,000 ML IV SCH ×2 (04:39→20:50)
[2022-07-28 06:21] LABS: Basophils # (A) 0.1 k/uL (0-0.2); Basophils % (A) 1 %; Eosinophils # (A) 0.2 k/uL (0-0.7); Eosinophils % (A) 3 %; HCT 33.2 % (39.0-53.0); HGB 11.1 gm/dL (13.0-17.5); Lymphocytes # (A) 2.2 k/uL (1.0-4.8); Lymphocytes % (A) 36 %; MCH 31.6 pg (25.0-35.0); MCHC 33.6 g/dL (31.0-37.0); MCV 94.1 fL (80.0-100.0); Monocytes # (A) 0.4 k/uL (0-1.0); Monocytes % (A) 7 %; Neutrophils # (A) 3.1 k/uL (1.3-7.7); Neutrophils % (A) 51 %; Platelet Count 213 k/uL (150-450); Poikilocytosis Slight; RBC 3.52 m/uL (4.30-5.90); RDW 13.4 % (11.5-15.5)
[2022-07-28 06:39] LABS: Calcium 8.3 mg/dL (8.4-10.2); Potassium 4.7 mmol/L (3.5-5.1)
[2022-07-28] MEDS: ISOSORBIDE MONONITRATE ER 60 MG TAB.ER.24H PO SCH (08:22)
[2022-07-28] MEDS: carvediloL 12.5 MG TAB PO SCH ×2 (08:22→20:53)
[2022-07-28] MEDS: PANTOPRAZOLE 40 MG/10 ML VIAL IV SCH ×2 (08:22→20:53)
--- NOTE | 2022-07-28 10:51 | P.CONS ---
History of Present Illness - Reason for Consult Consult date: 07/28/22 GI bleed Requesting physician: Thomas Forrester - Chief Complaint Dizziness, melena - History of Present Illness This is a pleasant 67-year-old male with a past medical history of coronary artery disease status post cardiac stent on aspirin and Plavix, previous GI bleed from ulcer, hyperlipidemia and hypertension who presented to the emergency department with complaints of dizziness, lightheadedness and was found to be hypotensive on admission with a blood pressure of 95/74. He also reported having four black bowel movements yesterday throughout the day and one small b lack bowel movement this morning. He denies any abdominal pain, nausea or vomiting. He does state he did have some nausea yesterday. He does have a history of previous ulcer and underwent EGD about 2 years ago done at [facility]. Patient was not taking any PPIs, only taking Pepcid as needed. Hemoglobin is stable. Patient is currently denying any shortness of breath or chest pain, states dizziness has improved as well. He has been nothing by mouth since yesterday. Last dose of Plavix and aspirin was yesterday as well. Denies any NSAID use. Current labs WBC 6.0 hemoglobin 11 hematocrit 33 platelet count 213,019 or 1.0 sodium 142 potassium 4.7 BUN 51 creatinine 1.09 glucose 101 total bilirubin 0.7 AST 26 ALT 19 alkaline phosphatase 42 stool occult blood positive Review of Systems REVIEW OF SYSTEMS: CARDIOPULMONARY: No chest pain or shortness of breath. Gastrointestinal: No epigastric pain or abdominal pain. Nausea with no vomiting. No hematemesis, coffee-ground emesis. 4 to 5 black stools. GENITOURINARY: No dysuria or hematuria. MUSCULOSKELETAL: Reports normal range of motion. SKIN: No rashes. No jaundice. ENDOCRINE: No chills, fevers. No excessive weight gain or loss. No polydipsia or polyuria. PSYCHIATRIC: Unremarkable. NEUROLOGY: No change in mental status. Patient reported dizziness and lightheaded. ENT: Vision unremarkable. CONSTITUTIONAL: No recent weight loss. No fever, chills, night sweats. Past Medical History Past Medical History: GI Bleed, Hyperlipidemia, Hypertension Additional Past Medical History / Comment(s): GI bleed x2 History of Any Multi-Drug Resistant Organisms: None Reported Past Surgical History: Heart Catheterization With Stent, Joint Replacement, Orthopedic Surgery Additional Past Surgical History / Comment(s): TURP, rt hip replacement Past Anesthesia/Blood Transfusion Reactions: No Reported Reaction Date of Last Stent Placement:: 2010 Past Psychological History: No Psychological Hx Reported Smoking Status: Never smoker Past Alcohol Use History: Rare Past Drug Use History: None Reported Medications and Allergies Home Medications Medication Instructions Recorded Confirmed Type Clopidogrel [Plavix] 75 mg PO DAILY 11/19/19 07/27/22 History Isosorbide Mononitrate [Isosorbide 60 mg PO DAILY 11/19/19 07/27/22 History Mononitrate ER] carvediloL [Coreg] 12.5 mg PO BID 11/19/19 07/27/22 History Aspirin [Adult Low Dose Aspirin EC] 81 mg PO DAILY 07/27/22 07/27/22 History Famotidine 40 mg PO DAILY PRN 07/27/22 07/27/22 History Niacin [Niaspan] 1,000 mg PO HS 07/27/22 07/27/22 History Niacin [Niaspan] 2,000 mg PO DAILY 07/27/22 07/27/22 History Allergies Allergy/AdvReac Type Severity Reaction Status Date / Time adhesive Allergy Unknown red , Verified 07/27/22 12:08 irritated skin with bandaids/tape Iodinated Contrast Media Allergy Unknown Dyspnea, Verified 07/27/22 12:08 Flushed Latex, Natural Rubber Allergy Rash/Hives Verified 07/27/22 12:08 Physical Exam Vitals: Vital Signs Temp Pulse Pulse Resp BP BP BP 07/28/22 04:00 98.4 F 82 18 07/28/22 00:00 98.0 F 84 19 07/27/22 20:00 98.2 F 81 19 07/27/22 19:30 89 16 103/80 07/27/22 18:34 98.3 F 81 18 110/81 07/27/22 17:07 98.1 F 88 18 103/79 07/27/22 16:29 97.7 F 86 18 112/69 07/27/22 16:09 98.6 F 86 18 116/74 07/27/22 15:59 98.1 F 87 18 114/70 07/27/22 15:05 95/74 80/67 07/27/22 14:15 86 18 107/76 07/27/22 13:07 76 20 83/51 07/27/22 12:46 81 20 115/75 07/27/22 11:49 97.8 F 87 18 125/83 BP Pulse Ox 07/28/22 04:00 128/75 98 07/28/22 00:00 121/73 96 07/27/22 20:00 122/73 97 07/27/22 19:30 96 07/27/22 18:34 99 07/27/22 17:07 98 07/27/22 16:29 97 07/27/22 16:09 98 07/27/22 15:59 99 07/27/22 15:05 121/71 07/27/22 14:15 97 07/27/22 13:07 100 07/27/22 12:46 98 07/27/22 11:49 97 Intake and Output 07/27/22 07/28/22 07/28/22 22:59 06:59 14:59 Intake Total 266 Balance 266 Intake: Blood Product 266 Rc Pheresis 2 As3 Unit 266 [id number] Other: Voiding Method Toilet Toilet # Voids 1 Weight 120.202 kg General appearance: The patient is alert, oriented, appears in no acute distress. HET: Head is normocephalic and atraumatic. Conjunctiva pink. Sclera anicteric. Neck: Supple without lymphadenopathy. Trachea midline. Heart: S1 S2. Regular rate and rhythm. Lungs: Clear to auscultation. Abdomen: Soft, mild tenderness in epigastric region, nondistended with bowel sounds. No guarding or rigidity. Skin: No rashes. No jaundice. Extremities: Normal skin color and turgor. No pedal edema. Neurological: No focal deficits. Alert and oriented x3. Results CBC & Chem 7: 07/28/22 06:06 07/28/22 06:06 Labs: Abnormal Lab Results - Last 24 Hours (Table) 07/27/22 07/27/22 07/27/22 Range/Units 12:43 12:43 12:43 RBC 3.46 L (4.30-5.90) m/uL Hgb 10.6 L (13.0-17.5) gm/dL Hct 32.3 L (39.0-53.0) % Chloride (98-107) mmol/L BUN 38 H (9-20) mg/dL Glucose 107 H (74-99) mg/dL Calcium 8.2 L (8.4-10.2) mg/dL Total Protein 5.2 L (6.3-8.2) g/dL Albumin 3.1 L (3.5-5.0) g/dL Crossmatch See Detail 07/27/22 07/28/22 07/28/22 Range/Units 17:57 00:28 06:06 RBC 3.63 L 3.19 L 3.52 L (4.30-5.90) m/uL Hgb 11.2 L 10.2 L 11.1 L (13.0-17.5) gm/dL Hct 34.8 L 30.3 L 33.2 L (39.0-53.0) % Chloride (98-107) mmol/L BUN (9-20) mg/dL Glucose (74-99) mg/dL Calcium (8.4-10.2) mg/dL Total Protein (6.3-8.2) g/dL Albumin (3.5-5.0) g/dL Crossmatch 07/28/22 Range/Units 06:06 RBC (4.30-5.90) m/uL Hgb (13.0-17.5) gm/dL Hct (39.0-53.0) % Chloride 109 H (98-107) mmol/L BUN 51 H (9-20) mg/dL Glucose 101 H (74-99) mg/dL Calcium 8.3 L (8.4-10.2) mg/dL Total Protein (6.3-8.2) g/dL Albumin (3.5-5.0) g/dL Crossmatch Assessment and Plan (1) GI bleed Narrative/Plan: 67-year-old male with a past medical history of ulcer and she bleed who underwent EGD about 2 years ago at [facility] presented to the emergency department with symptomatic anemia and 4 to 5 black stools. Patient denies any PPI therapy, takes Pepcid as needed. Denies NSAID use. Has history of coronary artery disease status post stent who is on low-dose 81 mg aspirin as well as Plavix daily. Although hemoglobin stable at 11.1, with patient's history of pre vious ulcer need to consider acute blood loss from ulcer, other possible etiologies include gastritis, AVM, esophagitis, or other possible etiologies. Will proceed with EGD today. Hold aspirin and Plavix, avoid NSAIDs. Protonix 40 mg twice a day. Current Visit: Yes Status: Acute Code(s): K92.2 - GASTROINTESTINAL HEMO RRHAGE, UNSPECIFIED SNOMED Code(s): 64858002 (2) Symptomatic anemia Current Visit: Yes Status: Acute Code(s): D64.9 - ANEMIA, UNSPECIFIED SNOMED Code(s): 235682652 (3) Coronary artery disease Narrative/Plan: on ASA 81mg, plavix for previous stent Current Visit: Yes Status: Acute Code(s): I25.10 - ATHSCL HEART DISEASE OF [place] CORONARY ARTERY W/O ANG PCTRS SNOMED Code(s): 83204594 Plan: 1. Continue symptomatic and supportive care 2. Keep nothing by mouth 3. Hold aspirin and Plavix 4. Protonix 40 mg IV twice a day 5. Daily CBC, transfuse for hemoglobin less than 7 6. Avoid NSAIDs 7. Patient scheduled for EGD today 8. Discuss with patient to continue daily PPI therapy on discharge Thank you for this consultation, we will continue to follow. Dr. Jackie Nina I agree with the dictator's note, documented as a scribe by Bailee Scott.
--- NOTE | 2022-07-28 11:51 | P.CRDCN ---
History of Present Illness Consult date: 07/28/22 Reason for Consult (text): CAD History of present illness: History of present illness: This is a 67-year-old male follows with cardiology at [facility]. He has a past medical history of coronary artery disease with previous stenting 10-12 years ago, hypertension, hyperlipidemia, GI bleed with most recent episode 2 years ago requiring transfusion. Patient gives history that he woke up yesterday took his medication was feeling lightheaded" going down stairs started having black stools 4 episodes. He states he had some shortness of breath with the bleeding. He called EMS and was brought into the hospital for further evaluation. Regarding Plavix, patient states that he was told by his operation research analyst to continue it indefinitely. He does confirm that his stent placement was 10-12 years ago. Patient states that he has change operation research analyst as his has retired and he is scheduled for a stress test soon. He denies having any chest pain or shortness of breath at this time. Patient has been transfused 1 unit of packed RBCs and scheduled for EGD. Patient states he feels much better today after having unit of blood. EKG sinus rhythm with no acute changes Initial hemoglobin 10.6 and 11.1 this morning. Potassium 4.7, BUN 51 and creatinine 1.09. Troponin negative 3. Stool for occult blood positive. KUB nonspecific nonobstructive bowel gas pattern Home cardiac medications aspirin 81 mg daily, Coreg 12.5 mg twice daily, Plavix 75 mg daily, Imdur 60 mg daily, and niacin twice daily Review Of Systems: At the time of my evaluation: Constitutional: No fever, no chills. No weakness, fatigue or lethargy. EENT: No headache. No dizziness. Lungs: No shortness of breath, cough, no sputum production. No wheezing. Cardiovascular: No chest pain, no lower extremity edema. No palpitations. No paroxysmal nocturnal dyspnea. No orthopnea. No lightheadedness or dizziness. No syncopal episodes. Abdominal: No abdominal pain. No nausea, vomiting. No diarrhea. No constipation. Reports bloody or tarry stools. Genitourinary: No dysuria.. No urinary retention. Musculoskeletal: No myalgias. No muscle weakness, no frequent falls. No back pain. No neck pain. Integumentary: No wounds. No rash. No unusual bruising. Neurologic: No aphasia. No facial droop. No change in mentation. No head injury. No headache. Psychiatric: No depression. No anxiety. Endocrine: No abnormal blood sugars. Physical examination: Gen: This is a 67-year-old male. He is sitting on edge of bed appears to be comfortable and in no acute distress. VS: reviewed HEENT: Head is atraumatic, normocephalic. Pupils equal, round. Sclerae is anicteric. NECK: Supple. No JVD. No lymphadenopathy. No thyromegaly. LUNGS: Clear to auscultation. No wheezes or rhonchi. No intercostal retractions. HEART: Regular rate and rhythm. No murmur. ABDOMEN: Soft. Bowel sounds are present. No masses. No tenderness. EXTREMITIES: No pedal edema. No calf tenderness. NEUROLOGICAL: Patient is awake, alert and oriented x3. Cranial nerves 2 through 12 are grossly intact. Assessment: Acute GI bleed History of coronary artery disease with previous stent, details are unknown Hypertension Hyperlipidemia History of GI bleeds in the past Plan: Resume patient on Coreg and Imdur Further recommendations to follow based upon clinical course Thank you kindly for this consultation. Nurse practitioner note has been reviewed, I agree with documented findings and plan of care. Patient was seen and examined. Past Medical History Past Medical History: GI Bleed, Hyperlipidemia, Hypertension Additional Past Medical History / Comment(s): GI bleed x2 History of Any Multi-Drug Resistant Organisms: None Reported Past Surgical History: Heart Catheterization With Stent, Joint Replacement, Orthopedic Surgery Additional Past Surgical History / Comment(s): TURP, rt hip replacement Past Anesthesia/Blood Transfusion Reactions: No Reported Reaction Date of Last Stent Placement:: 2010 Past Psychological History: No Psychological Hx Reported Smoking Status: Never smoker Past Alcohol Use History: Rare Past Drug Use History: None Reported Medications and Allergies Home Medications Medication Instructions Recorded Confirmed Type Clopidogrel [Plavix] 75 mg PO DAILY 11/19/19 07/27/22 History Isosorbide Mononitrate [Isosorbide 60 mg PO DAILY 11/19/19 07/27/22 History Mononitrate ER] carvediloL [Coreg] 12.5 mg PO BID 11/19/19 07/27/22 History Aspirin [Adult Low Dose Aspirin EC] 81 mg PO DAILY 07/27/22 07/27/22 History Famotidine 40 mg PO DAILY PRN 07/27/22 07/27/22 History Niacin [Niaspan] 1,000 mg PO HS 07/27/22 07/27/22 History Niacin [Niaspan] 2,000 mg PO DAILY 07/27/22 07/27/22 History Allergies Allergy/AdvReac Type Severity Reaction Status Date / Time adhesive Allergy Unknown red , Verified 07/27/22 12:08 irritated skin with bandaids/tape Iodinated Contrast Media Allergy Unknown Dyspnea, Verified 07/27/22 12:08 Flushed Latex, Natural Rubber Allergy Rash/Hives Verified 07/27/22 12:08 Physical Exam Vitals: Vital Signs Temp Pulse Pulse Resp BP BP BP 07/28/22 04:00 98.4 F 82 18 07/28/22 00:00 98.0 F 84 19 07/27/22 20:00 98.2 F 81 19 07/27/22 19:30 89 16 103/80 07/27/22 18:34 98.3 F 81 18 110/81 07/27/22 17:07 98.1 F 88 18 103/79 07/27/22 16:29 97.7 F 86 18 112/69 07/27/22 16:09 98.6 F 86 18 116/74 07/27/22 15:59 98.1 F 87 18 114/70 07/27/22 15:05 95/74 80/67 07/27/22 14:15 86 18 107/76 07/27/22 13:07 76 20 83/51 07/27/22 12:46 81 20 115/75 07/27/22 11:49 97.8 F 87 18 125/83 BP Pulse Ox 07/28/22 04:00 128/75 98 07/28/22 00:00 121/73 96 07/27/22 20:00 122/73 97 07/27/22 19:30 96 07/27/22 18:34 99 07/27/22 17:07 98 07/27/22 16:29 97 07/27/22 16:09 98 07/27/22 15:59 99 07/27/22 15:05 121/71 07/27/22 14:15 97 07/27/22 13:07 100 07/27/22 12:46 98 07/27/22 11:49 97 Intake and Output 07/27/22 07/28/22 07/28/22 22:59 06:59 14:59 Intake Total 266 Balance 266 Intake: Blood Product 266 Rc Pheresis 2 As3 Unit 266 [id number] Other: Voiding Method Toilet Toilet # Voids 1 Weight 120.202 kg Results 07/28/22 06:06 07/28/22 06:06 Cardiac Enzymes 07/27/22 07/27/22 07/27/22 Range/Units 12:43 12:43 17:57 AST 26 (17-59) U/L Troponin I 0.015 <0.012 (0.000-0.034) ng/mL 07/28/22 Range/Units 00:28 AST (17-59) U/L Troponin I <0.012 (0.000-0.034) ng/mL Coagulation 07/27/22 Range/Units 12:43 PT 10.6 (9.0-12.0) sec CBC 07/27/22 07/27/22 07/28/22 Range/Units 12:43 17:57 00:28 WBC 6.7 8.4 7.4 (3.8-10.6) k/uL RBC 3.46 L 3.63 L 3.19 L (4.30-5.90) m/uL Hgb 10.6 L 11.2 L 10.2 L (13.0-17.5) gm/dL Hct 32.3 L 34.8 L 30.3 L (39.0-53.0) % Plt Count 219 219 191 (150-450) k/uL 07/28/22 Range/Units 06:06 WBC 6.0 (3.8-10.6) k/uL RBC 3.52 L (4.30-5.90) m/uL Hgb 11.1 L (13.0-17.5) gm/dL Hct 33.2 L (39.0-53.0) % Plt Count 213 (150-450) k/uL Comprehensive Metabolic Panel 07/27/22 07/28/22 Range/Units 12:43 06:06 Sodium 138 142 (137-145) mmol/L Potassium 4.7 4.7 (3.5-5.1) mmol/L Chloride 107 109 H (98-107) mmol/L Carbon Dioxide 24 25 (22-30) mmol/L BUN 38 H 51 H (9-20) mg/dL Creatinine 1.03 1.09 (0.66-1.25) mg/dL Glucose 107 H 101 H (74-99) mg/dL Calcium 8.2 L 8.3 L (8.4-10.2) mg/dL AST 26 (17-59) U/L ALT 19 (4-49) U/L Alkaline Phosphatase 42 (38-126) U/L Total Protein 5.2 L (6.3-8.2) g/dL Albumin 3.1 L (3.5-5.0) g/dL Current Medications Generic Name Dose Route Start Last Admin Trade Name Freq PRN Reason Stop Dose Admin Sodium Chloride 1,000 mls @ 75 mls/hr 07/27/22 15:45 07/28/22 04:39 Saline 0.9% IV Not Given .[id number] HOLLY Naloxone HCl 0.2 mg 07/27/22 15:37 Naloxone 0.4 Mg/Ml 1 Ml Vial IV Q2M PRN Opioid Reversal Ondansetron HCl 4 mg 07/27/22 15:37 07/27/22 22:27 Ondansetron 4 Mg/2 Ml Vial IVP 4 mg Q8HR PRN Administration Nausea And Vomiting Pantoprazole Sodium 40 mg 07/27/22 21:00 07/27/22 20:29 Pantoprazole 40 Mg/10 Ml Vial IV 40 mg BID HOLLY Administration Intake and Output 07/27/22 07/28/22 07/28/22 22:59 06:59 14:59 Intake Total 266 Balance 266 Intake: Blood Product 266 Rc Pheresis 2 As3 Unit 266 [id number] Other: Voiding Method Toilet Toilet # Voids 1 Weight 120.202 kg 07/28/22 06:06 07/28/22 06:06
[2022-07-28] MEDS ORDERED: IV FLUID CONTINUATION 1,000 ML IV ONE ×2 (14:36)
[2022-07-28] MEDS ORDERED: LIDOCAINE 2% INJ 20 MG/ML (2 ML VIAL) ONE (14:40)
[2022-07-28] MEDS ORDERED: PROPOFOL 10 MG/ML 20 ML VIAL IV ONE (14:40)
--- NOTE | 2022-07-28 14:53 | P.PCN ---
Date of Procedure: 07/28/22 Procedure(s) Performed: BRIEF HISTORY: Patient is a 67-year-old, pleasant, white male scheduled for an upper endoscopy as a part of evaluation of black tarry stools for the last 2 days' duration. Hemoglobin is 10.1 g/dL.. His been on aspirin and Plavix which is currently on hold since yesterday. PROCEDURE PERFORMED: Esophagogastroduodenoscopy with cautery using a gold probe. PREOPERATIVE DIAGNOSIS: Black tarry stools of 2 days' duration. IV sedation per anesthesia. PROCEDURE: After informed consent was obtained, the patient was brought into the endoscopy unit. IV sedation was administered by Anesthesia under continuous monitoring. Initially the Olympus GIF-140 video endoscope was inserted into the mouth. Esophagus intubated without any difficulty. It was gradually advanced into the stomach and duodenum and carefully examined. The bulb of the duodenum had 2 small nonbleeding angiectasia which were cauterized using a gold probe. The second part of the duodenum appeared normal. The scope at this time was withdrawn to the stomach, adequately insufflated with air, and upon careful exa mination, mucosa of the antrum, body, cardia and the fundus appeared normal. The scope was then withdrawn into the esophagus. The GE junction was located at 39 cm from the incisors. Small sliding type hiatal hernia noted. There were linear erosions and ulcerations in the distal esophagus extending from 30-40 cm from the incisors consistent with LA grade C reflux esophagitis. Rest of esophagus appeared normal and the patient tolerated the procedure well. . IMPRESSION: 1. 2 small nonbleeding duodenal angiectasia in the duodenal bulb status post cautery using a gold probe. 2. Linear erosions and ulcerations in the distal esophagus consistent with LA grade C reflux esophagitis 3. Small hiatal hernia. RECOMMENDATIONS: The findings of this examination were discussed with the patient .He will continue with Protonix 40 mg twice daily for severe reflux esophagitis. Advance diet as tolerated. He will remain stable he can be discharged home tomorrow with outpatient follow-up in 3-4 weeks.
--- NOTE | 2022-07-29 04:59 | PN ---
PROGRESS NOTE DATE OF SERVICE: 07/28/2022 SUBJECTIVE: This is a 67-year-old gentleman admitted with GI bleed and acute blood loss anemia, had upper endoscopy by Dr. Nina which showed 2 small nonbleeding duodenal angiectasia, cautery was done and linear erosion and ulcerations in the distal esophagus also noted and a small hiatal hernia was also noted. There is no history of any fever, rigors, or chills. Hemoglobin today is 11.1. OBJECTIVE: VITAL SIGNS: Pulse is 71, blood pressure 116/71, respirations 16. HEENT: Conjunctivae normal. CARDIOVASCULAR: S1 and S2 muffled. ABDOMEN: Soft. NERVOUS SYSTEM: No focal deficits. LABORATORY DATA: Reviewed. ASSESSMENT: 1. Upper gastrointestinal bleeding, status post an acute blood-loss anemia, status post esophagogastroduodenoscopy showing a small and nonbleeding duodenal angiectasia, status post cautery. 2. Linear erosions and ulceration of the distal esophagus consists of grade C reflux esophagitis. 3. Presyncope. No orthostatic hypotension secondary to anemia. 4. Hypertension. 5. Hyperlipidemia. 6. History of coronary artery disease stent. 7. History of transurethral resection of the prostate. RECOMMENDATIONS: Recommend to continue current management and symptomatic treatment. Otherwise, monitor orthostatic vitals, repeat labs. Closely follow with Cardiology and Gastroenterology. Prognosis guarded because of the above-mentioned multiple medical issues and further recommendations to follow. MMODL / IJN: [id number] / MTDD
[2022-07-29 08:53] LABS: Basophils % (A) 1 %; Eosinophils # (A) 0.2 k/uL (0-0.7); Eosinophils % (A) 4 %; HCT 30.4 % (39.0-53.0); HGB 10.1 gm/dL (13.0-17.5); Lymphocytes # (A) 1.3 k/uL (1.0-4.8); Lymphocytes % (A) 24 %; MCH 31.3 pg (25.0-35.0); MCHC 33.2 g/dL (31.0-37.0); MCV 94.3 fL (80.0-100.0); Mean Platelet Volume 8.2; Monocytes # (A) 0.3 k/uL (0-1.0); Monocytes % (A) 5 %; Neutrophils # (A) 3.5 k/uL (1.3-7.7); Neutrophils % (A) 65 %; Platelet Count 198 k/uL (150-450); Poikilocytosis Slight; RBC 3.23 m/uL (4.30-5.90); RDW 13.4 % (11.5-15.5); WBC 5.4 k/uL (3.8-10.6)
[2022-07-29] MEDS: SODIUM CHLORIDE 0.9% 1,000 ML IV SCH (08:59)
[2022-07-29 09:02] LABS: Calcium 8.2 mg/dL (8.4-10.2); Potassium 4.2 mmol/L (3.5-5.1)
[2022-07-29] MEDS: ISOSORBIDE MONONITRATE ER 60 MG TAB.ER.24H PO SCH (09:05)
[2022-07-29] MEDS: PANTOPRAZOLE 40 MG/10 ML VIAL IV SCH (09:06)
[2022-07-29] MEDS: carvediloL 12.5 MG TAB PO SCH (09:06)
[2022-07-29 09:15] VITALS: RESP 16; TEMP 98.1
[2022-07-29] MEDS ORDERED: ASPIRIN 81 MG PO SCH (10:30)
[2022-07-29] MEDS ORDERED: CLOPIDOGREL 75 MG TAB PO SCH (10:30)
[2022-07-29 11:19] VITALS: BP 127/73; PULSE 76
--- NOTE | 2022-07-29 14:03 | P.PN ---
Subjective Progress Note Date: 07/29/22 History of present illness: This is a 67-year-old male follows with cardiology at [facility]. He has a past medical history of coronary artery disease with previous stenting 10-12 years ago, hypertension, hyperlipidemia, GI bleed with most recent episode 2 years ago requiring transfusion. Patient gives history that he woke up yesterday took his medication was feeling lightheaded" going down stairs started having black stools 4 episodes. He states he had some shortness of breath with the bleeding. He called EMS and was brought into the hospital for further evaluation. Regarding Plavix, patient states that he was told by his gauge operator to continue it indefinitely. He does confirm that his stent placement was 10-12 years ago. Patient states that he has change gauge operator as his has retired and he is scheduled for a stress test soon. He denies having any chest pain or shortness of breath at this time. Patient has been transfused 1 unit of packed RBCs and scheduled for EGD. Patient states he feels much better today after having unit of blood. EKG sinus rhythm with no acute changes Initial hemoglobin 10.6 and 11.1 this morning. Potassium 4.7, BUN 51 and creatinine 1.09. Troponin negative 3. Stool for occult blood positive. KUB nonspecific nonobstructive bowel gas pattern Home cardiac medications aspirin 81 mg daily, Coreg 12.5 mg twice daily, Plavix 75 mg daily, Imdur 60 mg daily, and niacin twice daily 3/2 Patient is seen today for recheck. He denies having any chest pain or shortness of breath. Hemoglobin is 10.1. Patient status post EGD which found 2 small nonbleeding duodenal angiodysplasia ectasia in the duodenal bulb status post cautery using gold probe. Linear erosions and ulcerations in the distal esophagus consistent with LA grade C reflux esophagitis, small hiatal hernia. Patient is currently off aspirin and Plavix. Physical examination: Gen: This is a 67-year-old male. He is sitting on edge of bed appears to be comfortable and in no acute distress. VS: reviewed HEENT: Head is atraumatic, normocephalic. Pupils equal, round. Sclerae is anicteric. NECK: Supple. No JVD. No lymphadenopathy. No thyromegaly. LUNGS: Clear to auscultation. No wheezes or rhonchi. No intercostal retractions. HEART: Regular rate and rhythm. No murmur. ABDOMEN: Soft. Bowel sounds are present. No masses. No tenderness. EXTREMITIES: No pedal edema. No calf tenderness. NEUROLOGICAL: Patient is awake, alert and oriented x3. Cranial nerves 2 through 12 are grossly intact. Assessment: Acute GI bleed History of coronary artery disease with previous stent, details are unknown Hypertension Hyperlipidemia History of GI bleeds in the past Plan: Resume patient on Coreg and Imdur Cardiology we'll sign off and follow on an as-needed basis.. Nurse practitioner note has been reviewed, I agree with documented findings and plan of care. Patient was seen and examined. Objective - Vital Signs Vital signs: Vital Signs Temp 98.1 F 07/29/22 09:00 Pulse 81 07/29/22 09:00 Resp 16 07/29/22 09:00 BP 119/74 07/29/22 09:00 Pulse Ox 98 07/29/22 09:00 FiO2 Intake & Output 07/28/22 07/29/22 07/29/22 18:59 06:59 18:59 Intake Total 680 Balance 680 Intake: IV 200 Oral 480 Other: Voiding Method Toilet # Voids 1 2 # Bowel Movements 2 - Labs CBC & Chem 7: 07/29/22 08:25 07/29/22 08:25 Labs: Abnormal Lab Results - Last 24 Hours (Table) 07/29/22 07/29/22 Range/Units 08:25 08:25 RBC 3.23 L (4.30-5.90) m/uL Hgb 10.1 L (13.0-17.5) gm/dL Hct 30.4 L (39.0-53.0) % BUN 31 H (9-20) mg/dL Glucose 142 H (74-99) mg/dL Calcium 8.2 L (8.4-10.2) mg/dL
--- NOTE | 2022-07-29 14:26 | P.PN ---
Subjective Progress Note Date: 07/29/22 Principal diagnosis: GI bleed This is a pleasant 67-year-old male with a past medical history of coronary artery disease status post cardiac stent on aspirin and Plavix, previous GI bleed from ulcer, hyperlipidemia and hypertension who presented to the emergency department with complaints of dizziness, lightheadedness and was found to be hypotensive on admission with a blood pressure of 95/74. He also reported having four black bowel movements yesterday throughout the day and one small black bowel movement this morning. He denies any abdominal pain, nausea or vomiting. He does state he did have some nausea yesterday. He does have a history of previous ulcer and underwent EGD about 2 years ago done at [facility]. Patient was not taking any PPIs, only taking Pepcid as needed. Hemoglobin is stable. Patient is currently denying any shortness of breath or chest pain, states dizziness has improved as well. He has been nothing by mouth since yesterday. Last dose of Plavix and aspirin was yesterday as well. Denies any NSAID use. 07/29/2022: Patient seen and examined as a follow-up. Yesterday he underwent EGD with findings of 2 small nonbleeding duodenal angiectasia in the duodenal bulb status post cautery and linear erosions and ulcerations in the distal esophagus consistent with LA grade C reflux esophagitis. Patient also has a small hiatal hernia. Patient denies any abdominal pain, no nausea or vomiting. He is tolerating a regular diet. Patient did have a bowel movement yesterday evening that he states was still dark. Hemoglobin stable at 10.1. Objective - Vital Signs Vital signs: Vital Signs Temp 98.1 F 07/29/22 09:00 Pulse 81 07/29/22 09:00 Resp 16 07/29/22 09:00 BP 119/74 07/29/22 09:00 Pulse Ox 98 07/29/22 09:00 FiO2 Intake & Output 07/28/22 07/29/22 07/29/22 18:59 06:59 18:59 Intake Total 680 Balance 680 Intake: IV 200 Oral 480 Other: Voiding Method Toilet # Voids 1 2 # Bowel Movements 2 - Exam General appearance: The patient is alert, oriented, appears in no acute distress. HET: Head is normocephalic and atraumatic. Conjunctiva pink. Sclera anicteric. Neck: Supple without lymphadenopathy. Abdomen: Soft, nontender, nondistended with bowel sounds. No guarding or rigidity. Extremities: Normal skin color and turgor. No pedal edema Skin: No rashes, no jaundice Neurological: No focal deficits. Alert and oriented. - Labs CBC & Chem 7: 07/29/22 08:25 07/29/22 08:25 Labs: Abnormal Lab Results - Last 24 Hours (Table) 07/29/22 07/29/22 Range/Units 08:25 08:25 RBC 3.23 L (4.30-5.90) m/uL Hgb 10.1 L (13.0-17.5) gm/dL Hct 30.4 L (39.0-53.0) % BUN 31 H (9-20) mg/dL Glucose 142 H (74-99) mg/dL Calcium 8.2 L (8.4-10.2) mg/dL Assessment and Plan (1) GI bleed Narrative/Plan: 67-year-old male with a past medical history of ulcer and she bleed who underwent EGD about 2 years ago at [facility] presented to the emergency department with symptomatic anemia and 4 to 5 black stools. Patient denies any PPI therapy, takes Pepcid as needed. Denies NSAID use. Has history of coronary artery disease status post stent who is on low-dose 81 mg aspirin as well as Plavix daily. Although hemoglobin stable at 11.1, with patient's history of previous ulcer need to consider acute blood loss from ulcer, other possible etiologies include gastritis, AVM, esophagitis, or other possible etiologies. Will proceed with EGD today. Hold aspirin and Plavix, avoid NSAIDs. Protonix 40 mg twice a day. Yesterday he underwent EGD with findings of 2 small nonbleeding duodenal angiectasia in the duodenal bulb status post cautery and linear erosions and ulcerations in the distal esophagus consistent with LA grade C reflux esophagitis Status: Acute Code(s): K92.2 - GASTROINTESTINAL HEMORRHAGE, UNSPECIFIED SNOMED Code(s): 39538007 (2) Symptomatic anemia Status: Acute Code(s): D64.9 - ANEMIA, UNSPECIFIED SNOMED Code(s): 879823970 (3) Coronary artery disease Narrative/Plan: on ASA 81mg, plavix for previous stent Status: Acute Code(s): I25.10 - ATHSCL HEART DISEASE OF [place] CORONARY ARTERY W/O ANG PCTRS SNOMED Code(s): 51218067 Plan: 1. Continue symptomatic and supportive care 2. Regular diet 3. May resume aspirin and Plavix 4. Protonix 40 mg twice a day 5. Avoid NSAIDs Thank you for this consultation, patient is cleared for discharge from gastroenterology. Dr. Jackie Nina I agree with the dictator's note, documented as a scribe by Bailee Scott.
--- NOTE | 2022-08-02 05:21 | P.DS ---
Providers Date of admission: 07/27/22 15:37 Expected date of discharge: 07/29/22 Attending physician: Nitza Pearson Consults: 07/27/22 15:37 Consult Physician Urgent Consulting Provider: Alaina Nina Consult Reason/Comments: GI bleed Do you want consulting provider notified?: Yes 07/27/22 16:20 Consult Physician Routine Consulting Provider: Humberto Morse Consult Reason/Comments: cad Do you want consulting provider notified?: Yes Primary care physician: Physician Nonstaff Hospital Course: Final diagnosis Upper GI bleeding, status post acute blood loss anemia, status post EGD showing a small and nonbleeding duodenal angiectasia, status post cautery Linear erosions and ulceration of the distal esophagus consisting of grade C reflux esophagitis Presyncope, no orthostatic hypotension, secondary to anemia Hypertension and hyperlipidemia and history of coronary disease with stenting History of TURP Discharge disposition Patient is being discharged in a stable condition with guarded prognosis to home. Patient will follow-up with his primary care provider in the outpatient setting upon discharge. Patient is to follow-up outpatient with GI as scheduled. Total time taken is greater than 35 minutes. Hospital course This is a 67-year-old male who was recently admitted with concerns for GI bleed acute blood loss anemia and being closely monitored. Patient underwent EGD with 2 small nonbleeding duodenal angiectasia along with a small hiatal hernia noted. Hemoglobin is stable and patient has been cleared by consultation for discharge with outpatient follow-up. Patient okay to resume aspirin and Plavix per GI and would recommend follow-up labs in the next few days to monitor CBC. Currently no reports of chest pain, shortness of breath, or palpitations. Patient is afebrile. No reports of nausea or vomiting and patient is tolerating diet. Patient will be discharged home today. Physical exam: Gen: This is a 67-year-old male who is awake, alert and oriented 3, well- developed, well-nourished, obese HEENT: Head is atraumatic, normocephalic. Pupils equal, round. Sclerae is anicteric. NECK: Supple. No JVD. No lymphadenopathy. No thyromegaly. LUNGS: Clear to auscultation. No wheezes or rhonchi. No intercostal retractions. HEART: Regular rate and rhythm. No murmur. ABDOMEN: Soft. Bowel sounds are present. No masses. No tenderness. EXTREMITIES: No pedal edema. No calf tenderness. NEUROLOGICAL: Patient is awake, alert and oriented x3. Cranial nerves 2 through 12 are grossly intact. Please refer to medication reconciliation sheet for a list of medications. The impression and plan of care has been dictated by Cassi Arzate, Nurse Practitioner as directed. Dr. Michel MD I have performed a history and examination and MDM of this patient, discussed the same with the dictator, and agree with the dictator's assessment and plan as written ,documented as a scribe. Based on total visit time, I have performed more than 50% of the visit. Patient Condition at Discharge: Fair Plan - Discharge Summary Discharge Rx Participant: No New Discharge Prescriptions: New Pantoprazole Sodium [Protonix] 40 mg PO BID 90 Days #180 tab Continue Isosorbide Mononitrate [Isosorbide Mononitrate ER] 60 mg PO DAILY Clopidogrel [Plavix] 75 mg PO DAILY carvediloL [Coreg*] 12.5 mg PO BID Niacin [Niaspan] 2,000 mg PO DAILY Aspirin [Adult Low Dose Aspirin EC] 81 mg PO DAILY Famotidine 40 mg PO DAILY PRN PRN Reason: acid reflux Niacin [Niaspan] 1,000 mg PO HS Discharge Medication List Clopidogrel [Plavix] 75 mg PO DAILY 11/19/19 [History] Isosorbide Mononitrate [Isosorbide Mononitrate ER] 60 mg PO DAILY 11/19/19 [History] carvediloL [Coreg*] 12.5 mg PO BID 11/19/19 [History] Aspirin [Adult Low Dose Aspirin EC] 81 mg PO DAILY 07/27/22 [History] Famotidine 40 mg PO DAILY PRN 07/27/22 [History] Niacin [Niaspan] 1,000 mg PO HS 07/27/22 [History] Niacin [Niaspan] 2,000 mg PO DAILY 07/27/22 [History] Pantoprazole Sodium [Protonix] 40 mg PO BID 90 Days #180 tab 07/28/22 [Rx] Follow up Appointment(s)/Referral(s): Alaina Nina MD [STAFF PHYSICIAN] - 4 Weeks (Please call office for appointment. Office closed for lunch. ) Nonstaff,Physician [Primary Care Provider] - 1-2 days Ambulatory/Diagnostic Orders: Complete Blood Count w/diff [LAB.AMB] Time Frame: 3 Days, Location: None Selected Patient Instructions/Handouts: Gastrointestinal Bleeding (DC), Upper Endoscopy (DC) Activity/Diet/Wound Care/Special Instructions: Activity Limited until follow-up Follow-up with primary care provider on discharge Follow-up with GI outpatient in 2-3 weeks Continue taking medications as prescribed including Protonix twice daily until GI follow-up May resume aspirin and Plavix Discharge Disposition: HOME SELF-CARE
== END 2022-07-29 13:41 | disposition home or self-care (01) ==
LOC: EC 11:48 → INTOOBSV 15:37 → 3SCARD 15:37 → UNDODISIN 07-29 13:41
PROVIDERS: ADMIT Hospitalist; ATTEND Hospitalist
DX: D62 Acute posthemorrhagic anemia (principal); K21.00 Gastro-esophageal reflux disease with esophagitis, without bleeding; I99.8 Other disorder of circulatory system; I10 Essential (primary) hypertension; E78.5 Hyperlipidemia, unspecified; K44.9 Diaphragmatic hernia without obstruction or gangrene; R55 Syncope and collapse; K22.10 Ulcer of esophagus without bleeding; E66.9 Obesity, unspecified; I87.8 Other specified disorders of veins; I25.10 Atherosclerotic heart disease of native coronary artery without angina pectoris; Z79.82 Long term (current) use of aspirin; Z95.5 Presence of coronary angioplasty implant and graft; Z96.641 Presence of right artificial hip joint; Z91.040 Latex allergy status; Z68.34 Body mass index [BMI] 34.0-34.9, adult
CPT/HCPCS: 96376 ×2; 96375; 36430; 96361; 96374; 99291; 36415; 94760; 93005; 86900; 86901; 80053; 80048 ×2; 82550; 83605; 83735; 84484 ×2; 85025 ×3; 85027; 85610; 86850; 86920; 82272; 74018; 43255; G0378 ×3; P9016; J2405; J2704; C9113 ×3; J2001

== ENCOUNTER → 2023-06-02 | Outpatient (CLI) | payer MEDICARE ==
[2023-06-02 15:40] LABS: Basophils # (A) 0.08 X 10*3/uL (0.00-0.10); Basophils % (A) 1.8 %; Eosinophils % (A) 6.9 %; HCT 44.6 % (39.6-50.0); HGB 13.9 g/dL (13.0-17.0); Lymphocytes # (A) 1.55 X 10*3/uL (0.90-5.00); Lymphocytes % (A) 35.8 %; MCH 25.3 pg (27.0-32.0); MCHC 31.2 g/dL (32.0-37.0); MCV 81.2 FL (80.0-97.0); Mean Platelet Volume 9.9 FL (9.5-12.2); Monocytes % (A) 13.9 %; NRBC Per 100 WBC 0 X 10*3/uL (0.00-0.01); Neutrophils # (A) 1.79 X 10*3/uL (1.80-7.70); Neutrophils % (A) 41.4 %; Platelet Count 223 X 10*3/uL (140-440); RBC 5.49 X 10*6/uL (4.40-5.60); WBC 4.33 X 10*3/uL (4.50-10.00)
[2023-06-02 16:27] LABS: ALT 29 U/L (10-49); AST 33 U/L (14-35); Albumin 4.4 g/dL (3.8-4.9); Albumin/Globulin Ratio 1.91 Ratio (1.60-3.17); Alkaline Phosphatase 57 U/L (41-126); BUN/Creat Ratio 13.07 Ratio (12.00-20.00); Blood Urea Nitrogen 18.3 mg/dL (9.0-27.0); C Reactive Protein, High Sens 0.716 mg/L (0.000-3.000); Calcium 9.8 mg/dL (8.7-10.3); Carbon Dioxide 27.6 mmol/L (21.6-31.8); Chloride 97 mmol/L (96-109); Chol/HDL Ratio 2.55 Ratio; Globulin 2.3 g/dL (1.6-3.3); Glucose 134 mg/dL (70-110); LDL Cholesterol,Calculated 45.4 mg/dL (0.0-131.0); Potassium 4.1 mmol/L (3.5-5.5); Prostate Specific Antigen 1.33 ng/mL (0.000-4.500); Sodium 137 mmol/L (135-145); Total Bilirubin 0.8 mg/dL (0.3-1.2); Total Protein 6.7 g/dL (6.2-8.2)
[2023-06-02 16:51] LABS: Follicle Stimulating Hormone 20.6 mIU/mL; Luteinizing Hormone 9.7 mIU/mL
[2023-06-03 08:52] LABS: Lipoprotein A <5 mg/dL (0-30)
== END | disposition home or self-care (01) ==
LOC: LABWHC1 09:11
PROVIDERS: ATTEND Family Medicine
DX: I10 Essential (primary) hypertension (principal); E78.5 Hyperlipidemia, unspecified; R89.1 Abnormal level of hormones in specimens from other organs, systems and tissues; R53.83 Other fatigue; Z79.899 Other long term (current) drug therapy
CPT/HCPCS: 36415; 80053; 80061; 82040; 82306; 82607; 82746; 83001; 83002; 83090; 83695; 84153; 84270; 84403; 84443; 85025; 86141